=== PATIENT | male | born 1985 | race Caucasian/White ===

== ENCOUNTER 2017-01-22 12:51 | Emergency (ER) | payer OTHER ==
[~2017-01-22] VITALS: Ht 170.2 cm; Wt 125.0 kg
[~2017-01-22 12:51] MED LIST: LORTAB 5 OR; LORTAB 7.5 OR; MEDDOSEPAK PO; NO MEDICATIONS; ULTRAM50 M1 PO; VICOPROFEN OR; ZITHROMAX250 MG OR
[2017-01-22 13:39] LABS: HEMATOCRIT 44.7 % (39.0-50.0); HEMOGLOBIN 14.1 g/dl (14.0-18.0); IMMATURE GRANULOCYTES 0.5 % (0.0-1.0); MEAN CELL VOLUME 86.8 fL CALC (80.0-100.0); MEAN CORPUSCULAR HGB 27.4 pG CALC (26.0-32.0); MEAN CORPUSCULAR HGB CONC 31.5 g/L CALC (32.0-36.0); NEUT# 5.73 thou/uL (1.82-7.42); RED BLOOD COUNT 5.15 mill/uL (4.70-6.10); RED CELL DISTRI WIDTH 14.2 % (11.5-15.5)
[2017-01-22 13:49] LABS: INTERNATIONAL NORMALIZED RATIO 0.9 RATIO (0.7-1.3); PROTHROMBIN TIME 9.4 SECONDS (9.0-12.5)
[2017-01-22 13:50] LABS: ALBUMIN 4.6 g/dL (3.2-5.0); ALKALINE PHOSPHATASE 83 u/l (38-126); ANION GAP 16 (6-22 (CALC)); BILIRUBIN, TOTAL 0.3 mg/dL (0.0-1.4); BUN 20 mg/dL (9-20); BUN/CREATININE RATIO 22 (12-20 (CALC)); CALCIUM 9.8 mg/dL (8.4-10.2); CARBON DIOXIDE 28 mmol/l (22-30); CHLORIDE 101 mmol/l (95-108); CREATININE 0.9 mg/dL (0.7-1.3); GFR > 60 ML/MIN (>=60 (CALC)); GFR FOR AFR.AMER. > 60 ML/MIN (>=60 (CALC)); GLUCOSE 94 mg/dL (75-110); POTASSIUM 4.9 mmol/l (3.5-5.1); SGOT/AST 34 u/l (17-59); SGPT/ALT 66 u/l (21-72); SODIUM 141 mmol/l (137-146); TOTAL PROTEIN 7.7 g/dL (6.3-8.2)
[2017-01-22 13:59] LABS: MYOGLOBIN 58 ng/mL (0 - 121)
[2017-01-22] MEDS ORDERED: KLONOPIN1 MG PO (14:09)
[2017-01-22] MEDS ORDERED: VYVANSE70 MG PO ×2 (14:09→14:33)
[2017-01-22] MEDS ORDERED: ADDERALL20 MG PO ×2 (14:10→14:31)
[2017-01-22] MEDS ORDERED: LOSARTAN POT50 MG PO (14:10)
[2017-01-22] MEDS ORDERED: AMITRIPTYLIN25 MG PO (14:11)
[2017-01-22] MEDS ORDERED: PRILOSEC20 MG PO (14:11)
[2017-01-22] MEDS ORDERED: FLUOXETINE HCL40 MG PO (14:11)
[2017-01-22] MEDS ORDERED: TOPAMAX200 MG PO (14:12)
[2017-01-22] MEDS ORDERED: COZAAR50 MG PO (14:31)
[2017-01-22] MEDS ORDERED: FLUOXETINE10 M2 PO (14:32)
[2017-01-22] MEDS ORDERED: OMEPRAZOLE10 MG PO (14:33)
[2017-01-22] MEDS ORDERED: ELAVIL25 MG PO (14:34)
[2017-01-22 15:17] LABS: URINE BILIRUBIN - DIPSTICK NEGATIVE (NEGATIVE); URINE BLOOD DIPSTICK NEGATIVE (NEGATIVE); URINE CLARITY CLEAR; URINE COLOR YELLOW; URINE GLUCOSE - DIPSTICK NEGATIVE (NEGATIVE); URINE KETONE NEGATIVE (NEGATIVE); URINE LEUK ESTERASE NEGATIVE (Negative); URINE NITRITE - DIPSTICK NEGATIVE (Negative); URINE PROTEIN - DIPSTICK NEGATIVE (NEG-TRACE); URINE SPECIFIC GRAVITY 1.025; URINE UROBILINOGEN - DIPSTICK 0.2 E.U./dL (0.2)
[2017-01-22 15:20] LABS: BARBITURATES NEGATIVE (NEGATIVE); COCAINE NEGATIVE (NEGATIVE); METHADONE NEGATIVE (NEGATIVE); OXCYCODONE NEGATIVE (NEGATIVE); TETRAHYDROCANNABIONOL NEGATIVE (NEGATIVE); TRICYLIC ANTIDEPRESSANTS POSITIVE (NEGATIVE)
[2017-01-22 15:41] VITALS: BP 124/67
== END 2017-01-22 15:41 | disposition short-term general hospital (02) | DRG 948 ==
LOC: ED 12:51
PROVIDERS: Emergency Medicine
DX: R41.82 Altered mental status, unspecified (principal); F90.9 Attention-deficit hyperactivity disorder, unspecified type; R53.1 Weakness; R47.9 Unspecified speech disturbances; R06.02 Shortness of breath; G40.909 Epilepsy, unspecified, not intractable, without status epilepticus

== ENCOUNTER 2017-04-29 07:07 | Day surgery (SDC) | payer OTHER ==
[~2017-04-29] VITALS: Ht 177.8 cm; Wt 124.7 kg
[~2017-04-29 07:07] MED LIST changes: +ADDERALL20 MG PO; +AMITRIPTYLIN25 MG PO; +CELEBREX100 M1 PO; +COZAAR50 MG PO; +ELAVIL25 MG PO; +FLUOXETINE HCL40 MG PO; +FLUOXETINE10 M2 PO; +GABAPENTIN100 MG PO; +KLONOPIN1 MG PO; +LATUDA40 MG PO; +LOSARTAN POT50 MG PO; +OMEPRAZOLE10 MG PO; +PRILOSEC20 MG PO; +TOPAMAX200 MG PO; +VYVANSE70 MG PO
[2017-04-29 10:44] VITALS: BP 113/81
== END 2017-04-29 09:55 | disposition home or self-care (01) | DRG 392 ==
LOC: ENDO 07:07
PROVIDERS: ATTEND Surgery
PROC: 0DBK8ZX Excision of Ascending Colon, Via Natural or Artificial Opening Endoscopic, Diagnostic (ICD-10-PCS; principal; 2017-04-29)
PROC: 0DBL8ZX Excision of Transverse Colon, Via Natural or Artificial Opening Endoscopic, Diagnostic (ICD-10-PCS; 2017-04-29)
PROC: 0DBN8ZX Excision of Sigmoid Colon, Via Natural or Artificial Opening Endoscopic, Diagnostic (ICD-10-PCS; 2017-04-29)
DX: K52.9 Noninfective gastroenteritis and colitis, unspecified (principal); K90.9 Intestinal malabsorption, unspecified

== ENCOUNTER 2018-01-06 17:59 | Emergency (ER) | payer OTHER ==
[~2018-01-06] VITALS: Ht 177.8 cm; Wt 133.0 kg
[~2018-01-06 17:59] MED LIST changes: +INVEGA SUS234 MG/1.5; +LYRICA100 MG PO; +LYRICA150 M1 PO; +RISPERDAL1 M1 PO; +TEMAZEPAM30 MG PO
[2018-01-06 19:07] LABS: HEMOGLOBIN 13.3 g/dl (14.0-18.0); IMMATURE GRANULOCYTES 0.3 % (0.0-1.0); MEAN CELL VOLUME 84.7 fL CALC (80.0-100.0); MEAN CORPUSCULAR HGB 27.5 pG CALC (26.0-32.0); MEAN CORPUSCULAR HGB CONC 32.4 g/L CALC (32.0-36.0); NEUT# 8.31 thou/uL (1.82-7.42); RED BLOOD COUNT 4.84 mill/uL (4.70-6.10); RED CELL DISTRI WIDTH 13.7 % (11.5-15.5)
[2018-01-06 19:11] LABS: URINE BILIRUBIN - DIPSTICK NEGATIVE (NEGATIVE); URINE BLOOD DIPSTICK NEGATIVE (NEGATIVE); URINE COLOR YELLOW; URINE GLUCOSE - DIPSTICK NEGATIVE (NEGATIVE); URINE KETONE NEGATIVE (NEGATIVE); URINE LEUK ESTERASE NEGATIVE (NEGATIVE); URINE NITRITE - DIPSTICK NEGATIVE (Negative); URINE PH 6.5 (4.5-8.0); URINE PROTEIN - DIPSTICK NEGATIVE (NEG-TRACE); URINE UROBILINOGEN - DIPSTICK 0.2 E.U./dL (0.2)
[2018-01-06 19:14] LABS: URINE CLARITY CLEAR
[2018-01-06 19:20] LABS: ALBUMIN 4.7 g/dL (3.2-5.0); ALKALINE PHOSPHATASE 81 u/l (38-126); ANION GAP 16 (6-22 (CALC)); BILIRUBIN, TOTAL 0.4 mg/dL (0.0-1.4); BUN 13 mg/dL (9-20); BUN/CREATININE RATIO 17 (12-20 (CALC)); CARBON DIOXIDE 25 mmol/l (22-30); CHLORIDE 103 mmol/l (95-108); CREATININE 0.8 mg/dL (0.7-1.3); GFR > 60 ML/MIN (>=60 (CALC)); GFR FOR AFR.AMER. > 60 ML/MIN (>=60 (CALC)); LIPASE 117 u/l (23-300); POTASSIUM 4.3 mmol/l (3.5-5.1); SGOT/AST 32 u/l (17-59); SGPT/ALT 43 u/l (21-72); SODIUM 140 mmol/l (137-146); TOTAL PROTEIN 8.3 g/dL (6.3-8.2)
[2018-01-06] MEDS ORDERED: PREVACID30 M3 PO (20:15)
[2018-01-06] MEDS ORDERED: ZOFRAN ODT4 MG PO (20:15)
[2018-01-06 20:27] VITALS: BP 131/75
== END 2018-01-06 20:28 | disposition home or self-care (01) | DRG 392 ==
LOC: ED 17:59
PROVIDERS: Family Medicine
DX: K29.70 Gastritis, unspecified, without bleeding (principal); R10.11 Right upper quadrant pain; R10.12 Left upper quadrant pain; R11.0 Nausea; K76.0 Fatty (change of) liver, not elsewhere classified
CPT/HCPCS: Q9967

== ENCOUNTER 2019-05-01 14:30 | Emergency (ER) | payer OTHER ==
[~2019-05-01] VITALS: Ht 177.8 cm; Wt 105.0 kg
[~2019-05-01 14:30] MED LIST changes: -INVEGA SUS234 MG/1.5; +INVEGA SUS234 MG/1.5 IJ; +LYRICA200 MG PO; +PREVACID30 M3 PO; +TOPAMAX200 M1 PO; +ZOFRAN ODT4 MG PO
[2019-05-01] MEDS ORDERED: DIVALPROEX SOD500 M3 PO (15:20)
[2019-05-01] MEDS ORDERED: TOPIRAMATE ER150 MG PO (15:20)
[2019-05-01] MEDS ORDERED: LOSARTAN POTAS100 MG PO (15:22)
[2019-05-01] MEDS ORDERED: OMEPRAZOLE DR40 MG PO (15:22)
[2019-05-01] MEDS ORDERED: LYRICA200 MG PO (15:23)
[2019-05-01] MEDS ORDERED: TAMSULOSIN HCL0.4 MG PO (15:23)
[2019-05-01] MEDS ORDERED: CELECOXIB200 MG PO (15:26)
[2019-05-01] MEDS ORDERED: AUSTEDO6 MG PO (15:26)
[2019-05-01] MEDS ORDERED: ZOFRAN4 MG/TAB PO (15:27)
[2019-05-01] MEDS ORDERED: ADDERALL20 MG PO (15:28)
[2019-05-01 15:39] LABS: HEMATOCRIT 40.6 % (39.0-50.0); HEMOGLOBIN 13.2 g/dl (14.0-18.0); IMMATURE GRANULOCYTES 0.3 % (0.0-5.0); MEAN CELL VOLUME 86.8 fL CALC (80.0-100.0); MEAN CORPUSCULAR HGB 28.2 pG CALC (26.0-32.0); MEAN CORPUSCULAR HGB CONC 32.5 g/L CALC (32.0-36.0); NEUT# 6.63 thou/uL (1.82-7.42); RED BLOOD COUNT 4.68 mill/uL (4.70-6.10); RED CELL DISTRI WIDTH 13.4 % (11.5-15.5)
[2019-05-01 15:42] LABS: URINE BILIRUBIN - DIPSTICK NEGATIVE (NEGATIVE); URINE BLOOD DIPSTICK NEGATIVE (NEGATIVE); URINE COLOR YELLOW; URINE GLUCOSE - DIPSTICK NEGATIVE (NEGATIVE); URINE KETONE NEGATIVE (NEGATIVE); URINE LEUK ESTERASE NEGATIVE (Negative); URINE NITRITE - DIPSTICK NEGATIVE (Negative); URINE PROTEIN - DIPSTICK NEGATIVE (NEG-TRACE); URINE SPECIFIC GRAVITY 1.015
[2019-05-01 15:53] LABS: URINE CLARITY CLEAR
[2019-05-01 16:03] LABS: ALBUMIN 4.3 g/dL (3.2-5.0); ALKALINE PHOSPHATASE 81 u/l (38-126); AMYLASE 63 u/l (30-110); BILIRUBIN, TOTAL 0.4 mg/dL (0.0-1.4); BUN 10 mg/dL (9-20); BUN/CREATININE RATIO 13 (12-20 (CALC)); CARBON DIOXIDE 24 mmol/l (22-30); CHLORIDE 107 mmol/l (95-108); CREATININE 0.8 mg/dL (0.7-1.3); ETHYL ALCOHOL 0 mg/dl (0-30); GFR > 60 ML/MIN (>=60 (CALC)); GFR FOR AFR.AMER. > 60 ML/MIN (>=60 (CALC)); LIPASE 154 u/l (23-300); SGOT/AST 14 u/l (17-59); SODIUM 141 mmol/l (137-146); TOTAL PROTEIN 7.4 g/dL (6.3-8.2)
[2019-05-01 16:05] LABS: ANION GAP 14 (6-22 (CALC)); POTASSIUM 4.2 mmol/l (3.5-5.1)
[2019-05-01 16:15] VITALS: BP 112/66
[2019-05-01 16:33] LABS: BARBITURATES NEGATIVE (NEGATIVE); COCAINE NEGATIVE (NEGATIVE); METHADONE NEGATIVE (NEGATIVE); OXCYCODONE NEGATIVE (NEGATIVE); TETRAHYDROCANNABIONOL NEGATIVE (NEGATIVE); TRICYLIC ANTIDEPRESSANTS NEGATIVE (NEGATIVE)
== END 2019-05-01 16:15 | disposition left against medical advice (07) ==
LOC: ED 14:30
DX: R10.11 Right upper quadrant pain (principal); R11.2 Nausea with vomiting, unspecified; I10 Essential (primary) hypertension; Z91.19 Patient's noncompliance with other medical treatment and regimen

== ENCOUNTER 2019-05-11 09:50 | Observation (INO) | payer OTHER ==
[~2019-05-11] VITALS: Ht 180.3 cm; Wt 119.0 kg
[~2019-05-11 09:50] MED LIST changes: +AUSTEDO6 MG PO; +CELECOXIB200 MG PO; +DIVALPROEX SOD500 M3 PO; +LOSARTAN POTAS100 MG PO; +OMEPRAZOLE DR40 MG PO; +TAMSULOSIN HCL0.4 MG PO; +TOPIRAMATE ER150 MG PO; +ZOFRAN4 MG/TAB PO
--- NOTE | 2019-05-11 09:50 | NUR ---
PATIENT TO ROOM VIA EMS, GIVEN 4 MG OF ZOFRAN AND 400 ML OF NORMAL SALINE BY EMS. PATIENT NOTED TO HAVE DRIED VOMITING TO FACE.
--- NOTE | 2019-05-11 10:00 | NUR ---
PATIENT CLEANED OF ANY EMESIS.
--- NOTE | 2019-05-11 10:05 | NUR ---
O2 TURNED OFF FOR ABG.
[2019-05-11 10:47] LABS: HEMATOCRIT 38.9 % (39.0-50.0); HEMOGLOBIN 12.4 g/dl (14.0-18.0); IMMATURE GRANULOCYTES 0.4 % (0.0-5.0); MEAN CELL VOLUME 89.2 fL CALC (80.0-100.0); MEAN CORPUSCULAR HGB 28.4 pG CALC (26.0-32.0); MEAN CORPUSCULAR HGB CONC 31.9 g/L CALC (32.0-36.0); NEUT# 14.74 thou/uL (1.82-7.42); RED BLOOD COUNT 4.36 mill/uL (4.70-6.10); RED CELL DISTRI WIDTH 13.5 % (11.5-15.5)
--- NOTE | 2019-05-11 11:00 | NUR ---
PATIENT MEDICATED PER MD ORDER. AT BEDSIDE, UPDATED ON PATIENT STATUS.
[2019-05-11 11:01] LABS: URINE BILIRUBIN - DIPSTICK NEGATIVE (NEGATIVE); URINE BLOOD DIPSTICK NEGATIVE (NEGATIVE); URINE COLOR YELLOW; URINE GLUCOSE - DIPSTICK NEGATIVE (NEGATIVE); URINE KETONE NEGATIVE (NEGATIVE); URINE LEUK ESTERASE NEGATIVE (NEGATIVE); URINE NITRITE - DIPSTICK NEGATIVE (Negative); URINE PROTEIN - DIPSTICK NEGATIVE (NEG-TRACE); URINE SPECIFIC GRAVITY >=1.030; URINE UROBILINOGEN - DIPSTICK 0.2 E.U./dL (0.2)
[2019-05-11 11:02] LABS: ALBUMIN 4.2 g/dL (3.2-5.0); ALKALINE PHOSPHATASE 81 u/l (38-126); ANION GAP 15 (6-22 (CALC)); BILIRUBIN, TOTAL 0.4 mg/dL (0.0-1.4); BUN 14 mg/dL (9-20); BUN/CREATININE RATIO 20 (12-20 (CALC)); CARBON DIOXIDE 23 mmol/l (22-30); CHLORIDE 110 mmol/l (95-108); CREATININE 0.7 mg/dL (0.7-1.3); ETHYL ALCOHOL 0 mg/dl (0-30); GFR > 60 ML/MIN (>=60 (CALC)); GFR FOR AFR.AMER. > 60 ML/MIN (>=60 (CALC)); LIPASE 51 u/l (23-300); POTASSIUM 4.2 mmol/l (3.5-5.1); SODIUM 143 mmol/l (137-146); TOTAL PROTEIN 7.1 g/dL (6.3-8.2)
[2019-05-11 11:03] LABS: BARBITURATES NEGATIVE (NEGATIVE); COCAINE NEGATIVE (NEGATIVE); METHADONE NEGATIVE (NEGATIVE); OXCYCODONE NEGATIVE (NEGATIVE); TETRAHYDROCANNABIONOL NEGATIVE (NEGATIVE); TRICYLIC ANTIDEPRESSANTS NEGATIVE (NEGATIVE)
[2019-05-11 11:11] LABS: SGOT/AST 25 u/l (17-59)
[2019-05-11] MEDS ORDERED: RISPERDAL2 MG PO (11:15)
--- NOTE | 2019-05-11 11:20 | NUR ---
MED REC COMPLETED WITH PATIENT AND . REPORTS RECENT MED CHANGES WITHIN PAST COUPLE OF WEEKS.
[2019-05-11 11:33] LABS: TSH, 3RD GENERATION 0.18 uIU/mL (0.47 - 4.68)
--- NOTE | 2019-05-11 11:40 | NUR ---
WET COUGH NOTED, NO SPUTUM PRODUCED. ICE CHIPS GIVEN PER PATIENT REQUEST. WAITING FOR CT SCAN.
--- NOTE | 2019-05-11 12:20 | NUR ---
PATIENT RETURNS FROM CT, LAB AT BEDSIDE TO DRAW SECOND LACTIC.
--- NOTE | 2019-05-11 13:00 | NUR ---
O2 SAT 80%, LIGHT SNORES NOTED. PATIENT RESPONDS TO PAIN, DROWSY. PATIENT PLACED ON FACEMASK AT 8L/MIN OF O2. O2 SAT 94% AFTER. PATIENT ALERT AND ORIENTED X3. UPDATED ON PATIENT STATUS.
--- NOTE | 2019-05-11 14:00 | NUR ---
AT BEDSIDE TO DISCUSS LUMBAR PUNCTURE WITH PATIENT. PATIENT NOTED TO BE ALERT AND ORIENTED. ABLE TO HOLD CONVERSATION. MASK REMOVED AND O2 AT 2L/MIN APPLIED. PATIENT TOLERATING WELL.
--- NOTE | 2019-05-11 14:35 | NUR ---
AT BEDSIDE FOR LUMBAR PUNCTURE. PATIENT TOLERATED WELL. WILL CONTINUE TO MONITOR. PATIENT RESTING SUPINE. INFOMRED OF POST LUMBAR CARE. VERBAL UNDERSTANDING.
--- NOTE | 2019-05-11 14:55 | NUR ---
REPORT GIVEN TO REGAN CARDONA.
--- NOTE | 2019-05-11 15:30 | NUR ---
PATIENT REPORTS SORE THROAT, THROAT NOTED TO BE RED AND IRRITATED. STREP SWAB COLLECTED.
--- NOTE | 2019-05-11 15:35 | NUR ---
PATIENT RESTING ON STRECHER WATCHING TV. NO SIGNS OF DISTRESS NOTED. WILL CONTINUE TO MONITOR.
--- NOTE | 2019-05-11 16:25 | NUR ---
PATIENT RESTING ON STRETCHER, NO CHANGE IN PREVIOUS ASSESSMENT. WILL CONTINUE TO MONITOR.
--- NOTE | 2019-05-11 17:00 | NUR ---
ATTEMPT MADE TO CALL REPORT, SPOKE TO WYATT. RN. REQUESTING ORDERS FROM ADMIT/UNIT ORDERS BEFORE TAKING REPORT.
--- NOTE | 2019-05-11 17:41 | NUR ---
REPORT CALLED TO REGAN SCHNEIDER.
--- NOTE | 2019-05-11 17:45 | NUR ---
PATIENT TRANSPORTED TO ICU WITH PERIANESTHESIA RN IN PLACE. IV MEDS INFUSING. REGAN COMBS AND REGAN SHOEMAKER AT BEDSIDE. CARE RELINQUISHED TO PRIMARY NURSE REGAN SCHNEIDER. PHONE, GLASSES AND CLOTHING SENT UP WITH PATIENT.
[2019-05-11 17:50] VITALS: BP 131/69
--- NOTE | 2019-05-11 17:50 | NUR ---
pt arrived to icu bed 5 via stretcher accompanied by er staff. pt able to stand and transfer self to bed. pt reports waking up this am and vimitting and then not being able to get up off of the floor. pt is alert and oriented x3. admission assessment completed at this time. pt does have slow speech and left eye that droops pt reports that is his norm that he had a tbi in 2008. iv patent x2. oriented pt to room and unit. call light in reach. will continue to monitor.
[2019-05-11 18:15] VITALS: BP 112/62
[2019-05-11 18:30] VITALS: BP 112/72
[2019-05-11 18:45] VITALS: BP 124/71
--- NOTE | 2019-05-11 18:50 | NUR ---
REPORT FROM Marcie LIPSCOMB RN. ASSUMED PT. CARE.
--- NOTE | 2019-05-11 19:15 | NUR ---
PT. FOUND SITTING UP IN BED EATING SUPPER. PT. REQUESTING MORE FOOD AT THIS TIME. ALERT, ORIENTED X 3. LEVAQUIN AND ACYCLOVIR INFUSING AT THIS TIME DIRECTED. NO REACTIONS NOTED. RESPS EVEN AND UNLABORED. SKIN WARM AND DRY. LUNGS CTA. NO SWELLING OR DISCOMFORT NOTED TO LOWER BACK AT SITE OF LUMBAR PUNCTURE. PT. C/O OF SOME MILD THROAT AND RT. MID ABD PAIN. DENIES NAUSEA, VOMITING OR DIARRHEA. BOWEL SOUNDS ACTIVE. AFEBRILE. MAE. STEWART. PT. PROVIDED WITH SHIRLEY CRACKERS, PUDDING AND ADDITIONAL SANDWICH AT THIS TIME. NO DISTRESS. BP/HR STABLE. CALL LIGHT WITHIN REACH. NO EDEMA NOTED. WILL CONTINUE TO MONITOR.
--- NOTE | 2019-05-11 19:50 | NUR ---
LEVAUQIN INFUSED AT THIS TIME. NO REACTIONS NOTED. LINE LOCKED AND SALINE FLUSHED. SKIN REMAINS WARM AND DRY AT THIS TIME. NO DISTRESS. CALL LIGHT REMAINS WITHIN REACH.
[2019-05-11 20:00] VITALS: BP 107/53
--- NOTE | 2019-05-11 20:05 | NUR ---
IV FLUIDS INITIATED AT THIS TIME ORDERED. ACYCLOVIR INFUSED WITHOUT NOTED REACTIONS. REMAINS AFEBRILE AT THIS TIME. CALL LIGHT REMAINS WITHIN REACH. WILL CONTINUE TO MONITOR.
[2019-05-11 22:00] VITALS: BP 90/45
--- NOTE | 2019-05-11 22:13 | NUR ---
PT. SLEEPING WITH SNORING RESPIRATIONS AT THIS TIME. MEDICATED PER PHYSICIAN ORDERS. CALL LIGHT REMAINS WITHIN REACH. RESPS REMAIN EVEN AND UNLABORED. IV FLUIDS CONTINUE TO INFUSE.
--- NOTE | 2019-05-11 22:56 | NUR ---
PT. ASSISTED WITH CHANGE OF GOWN AND LINENS AT THIS TIME. PT. WITH URGE INCONTINENCE AT THIS TIME. REMAINS ORIENTED X 3 IN NO DISTRESS. IV FLUIDS CONTINUE TO INFUSE AT 100 CC/HR ORDERED. CALL LIGHT REMAINS WITHIN REACH. REMAINS AFEBRILE. WILL CONTINUE TO MONITOR.
[2019-05-12] VITALS (7 sets, daily range): BP systolic 87–136; BP diastolic 35–67
--- NOTE | 2019-05-12 00:30 | NUR ---
BP LOW AT THIS TIME. IV FLUIDS CONTINUE TO INFUSE ORDERED. WILL CLOSELY MONITOR. CALL LIGHT REMAINS WITHIN REACH.
--- NOTE | 2019-05-12 02:20 | NUR ---
PT. REMAINS WITH SNORING RESPIRATION AND IN NO DISTRESS. IV FLUIDS CONTINUE TO INFUSE. BP IMPROVED. CALL LIGHT REMAINS WITHIN REACH. WILL CONTINUE TO ASSESS.
--- NOTE | 2019-05-12 04:43 | NUR ---
LAB AT BEDSIDE AT THIS TIME. PT. REMAINS STABLE. REMAINS AFEBRILE. CALL LIGHT WITHIN REACH. REMAINS EASILY AROUSABLE TO LIGHT VERBAL STIMULI. VOICES NO COMPLAINTS OR NEEDS.
[2019-05-12 05:03] LABS: HEMATOCRIT 36.8 % (39.0-50.0); HEMOGLOBIN 11.7 g/dl (14.0-18.0); IMMATURE GRANULOCYTES 0.4 % (0.0-5.0); MEAN CELL VOLUME 89.8 fL CALC (80.0-100.0); MEAN CORPUSCULAR HGB 28.5 pG CALC (26.0-32.0); MEAN CORPUSCULAR HGB CONC 31.8 g/L CALC (32.0-36.0); NEUT# 9.44 thou/uL (1.82-7.42); RED BLOOD COUNT 4.1 mill/uL (4.70-6.10); RED CELL DISTRI WIDTH 13.2 % (11.5-15.5)
[2019-05-12 05:22] LABS: ANION GAP 11 (6-22 (CALC)); BUN 9 mg/dL (9-20); BUN/CREATININE RATIO 17 (12-20 (CALC)); CARBON DIOXIDE 25 mmol/l (22-30); CHLORIDE 106 mmol/l (95-108); CREATININE 0.5 mg/dL (0.7-1.3); GFR > 60 ML/MIN (>=60 (CALC)); GFR FOR AFR.AMER. > 60 ML/MIN (>=60 (CALC)); POTASSIUM 4.4 mmol/l (3.5-5.1); SODIUM 139 mmol/l (137-146)
--- NOTE | 2019-05-12 06:02 | NUR ---
PT. CONTINUES TO REST IN BED IN NO DISTRESS. EYES CLOSED WITH EVEN AND UNLABORED RESPIRATIONS. CALL LIGHT REMAINS WITHIN REACH. SITTER REMAINS AT BEDSIDE AT THIS TIME. WILL CONTINUE TO ASSESS.
--- NOTE | 2019-05-12 06:04 | NUR ---
PT. REMAINS RESTING IN BED IN NO DISTRESS. SKIN REMAINS WARM AND DRY. NO DISTRESS. URINAL EMPTIED OF 700 CC AT THIS TIME. CALL LIGHT REMAINS WITHIN REACH. IV FLUIDS CONTINUES TO INFUSE WITHOUT SX OF INFILTRATION OR EXTRAVASATION.
--- NOTE | 2019-05-12 07:00 | NUR ---
PT RESTING IN BED ASLEEP. AROUSES TO VERBAL STIMULI. PT IS ALERT AND ORIENTED X3. SHIFT ASSESSMENT COMPLETED AT THIS TIME. IV PATENT X1. CALL LIGHT IN REACH. WILL CONTINUE TO MONITOR.
--- NOTE | 2019-05-12 09:30 | NUR ---
DR PARKER AT BEDSIDE AT THIS TIME
--- NOTE | 2019-05-12 10:00 | NUR ---
PT AMBULATED TO BATHROOM FOR BM.
--- NOTE | 2019-05-12 10:20 | NUR ---
PT AMBULATED FROM BATHROOM BACK TO BED.
--- NOTE | 2019-05-12 11:40 | NUR ---
PT SET UP FOR NOON MEAL
[2019-05-12] MEDS ORDERED: OMNICEF300 MG PO (12:35)
--- NOTE | 2019-05-12 12:40 | NUR ---
IV site discontinued, cath intact. No edema , no redness, voices no discomfort.
--- NOTE | 2019-05-12 12:50 | NUR ---
PT GIVEN DISCHARGE INSTRUCTIONS VERBALIZED UNDERSTANDING.
--- NOTE | 2019-05-12 12:55 | NUR ---
Discharge instructions given. Patient verbalizes understanding of same. Discharged in stable condition via Wheelchair to Home with family. All belongings sent with pt.
== END 2019-05-12 12:55 | disposition home or self-care (01) ==
LOC: ED 09:50 → ED-I 15:10 → ED 16:29 → ICU 16:30
PROVIDERS: Family Medicine; Nurse Practitioner Family; ADMIT Internal Medicine; ATTEND Internal Medicine
DX: J02.0 Streptococcal pharyngitis (principal); I10 Essential (primary) hypertension; F20.9 Schizophrenia, unspecified; Z88.0 Allergy status to penicillin; Z87.820 Personal history of traumatic brain injury
CPT/HCPCS: Q9967; S0073

== ENCOUNTER 2019-06-10 09:54 | Inpatient (IN) | payer OTHER ==
[~2019-06-10] VITALS: Ht 180.3 cm; Wt 117.1 kg
[~2019-06-10 09:54] MED LIST changes: +OMNICEF300 MG PO; +RISPERDAL2 MG PO
--- NOTE | 2019-06-10 09:55 | NUR ---
PT TO ROOM 14 VIA EMS
--- NOTE | 2019-06-10 10:12 | NUR ---
PT STATES THAT HIS RIGHT FOOT FELL IN A HOLE AND OPAL HIS BACK. PT HAS PAIN IN THE LOWER BACK, STATES HAVING DIFFICULTY STANDIGN DUE TO PAIN. PT RATES PAIN A 10/10. DENIES ANY LOC, C/P, SOB OR WEAKNESS.
[2019-06-10] MEDS ORDERED: CLONAZEPAM1 MG PO (10:46)
[2019-06-10 10:57] LABS: HEMOGLOBIN 13.6 g/dl (14.0-18.0); IMMATURE GRANULOCYTES 0.4 % (0.0-5.0); MEAN CELL VOLUME 86.9 fL CALC (80.0-100.0); MEAN CORPUSCULAR HGB 28.8 pG CALC (26.0-32.0); MEAN CORPUSCULAR HGB CONC 33.2 g/L CALC (32.0-36.0); NEUT# 13.25 thou/uL (1.82-7.42); RED BLOOD COUNT 4.72 mill/uL (4.70-6.10); RED CELL DISTRI WIDTH 13.7 % (11.5-15.5)
--- NOTE | 2019-06-10 11:12 | NUR ---
PT RESTING ON STRETCHER,
[2019-06-10 11:15] LABS: ACT PARTIAL THROMBO TIME 24.2 SECONDS (20.0-32.5); INTERNATIONAL NORMALIZED RATIO 0.9 RATIO (0.7-1.3); PROTHROMBIN TIME 9.6 SECONDS (9.0-12.5)
[2019-06-10 11:18] LABS: ALBUMIN 4.2 g/dL (3.2-5.0); ALKALINE PHOSPHATASE 88 u/l (38-126); AMYLASE 49 u/l (30-110); BILIRUBIN, TOTAL 0.4 mg/dL (0.0-1.4); BUN 36 mg/dL (9-20); CHLORIDE 111 mmol/l (95-108); ETHYL ALCOHOL 0 mg/dl (0-30); LIPASE 107 u/l (23-300); POTASSIUM 4.3 mmol/l (3.5-5.1); SODIUM 142 mmol/l (137-146); TOTAL PROTEIN 7.1 g/dL (6.3-8.2)
[2019-06-10 11:25] LABS: ANION GAP 17 (6-22 (CALC)); BUN/CREATININE RATIO 24 (12-20 (CALC)); GFR 54 ML/MIN (>=60 (CALC))
[2019-06-10 11:26] LABS: CARBON DIOXIDE 18 mmol/l (22-30); CREATININE 1.5 mg/dL (0.7-1.3); GFR FOR AFR.AMER. > 60 ML/MIN (>=60 (CALC)); MAGNESIUM 2.6 mg/dL (1.6-2.3); SGOT/AST 1064 u/l (17-59)
--- NOTE | 2019-06-10 11:30 | NUR ---
AT BEDSIDE,. PRESENTED EMPTY BOTTLE OF 200MG PREGABLAIN THAT WAS FILLED ON 06/06. PT STATES THAT HE DUMBED THE BOTTLE DOWN THE TOILET. STATES THAT HE HAS CLAIMED THIS BEFORE WHEN HE OVERDOSED ON THEM.
[2019-06-10 11:48] LABS: CPK 59590 u/l (52-200)
--- NOTE | 2019-06-10 11:53 | NUR ---
[facility] CONTACTED- SPOKE WITH GREGOR, SHE WILL CHECK WITH TOXICOLOGY TO DETERMINE FURTHER TREATMENT.
--- NOTE | 2019-06-10 12:35 | NUR ---
URINE COLLECTED FROM PT, DARK TEA IN COLOR
[2019-06-10 12:55] LABS: URINE BLOOD DIPSTICK LARGE (NEGATIVE); URINE GLUCOSE - DIPSTICK NEGATIVE (NEGATIVE); URINE KETONE 15 mg/dL (NEGATIVE); URINE LEUK ESTERASE NEGATIVE (NEGATIVE); URINE PH 5.5 (4.5-8.0); URINE PROTEIN - DIPSTICK 100 mg/dL (NEG-TRACE); URINE SPECIFIC GRAVITY 1.025; URINE UROBILINOGEN - DIPSTICK 0.2 E.U./dL (0.2)
[2019-06-10 13:01] LABS: URINE BILIRUBIN - DIPSTICK NEGATIVE (NEGATIVE)
[2019-06-10 13:02] LABS: URINE COLOR BROWN
[2019-06-10 13:03] LABS: URINE EPITHELIAL CELLS FEW EPI/hpf (0-FEW); URINE NITRITE - DIPSTICK NEGATIVE (Negative); URINE WBC 0-2 WBC/hpf (0-5)
[2019-06-10 13:04] LABS: URINE BACTERIA RARE hpf; URINE RED BLOOD CELL CAST FEW lpf
[2019-06-10 13:22] LABS: BARBITURATES NEGATIVE (NEGATIVE); COCAINE NEGATIVE (NEGATIVE); METHADONE NEGATIVE (NEGATIVE); TETRAHYDROCANNABIONOL NEGATIVE (NEGATIVE); TRICYLIC ANTIDEPRESSANTS NEGATIVE (NEGATIVE)
[2019-06-10 13:23] LABS: OXCYCODONE NEGATIVE (NEGATIVE)
--- NOTE | 2019-06-10 13:35 | NUR ---
PT RESTING ON STRETCHER, IV PATENT WITH FLUIDS RUNNING
--- NOTE | 2019-06-10 14:00 | NUR ---
[facility] CALLED BACK TO FOLLOW UP ON PT CARE- NO ADDITIONAL INSTRUCTIONS GIVEN
--- NOTE | 2019-06-10 15:58 | NUR ---
FEDERICO SPEARS FROM [facility] CALLED FOR REPORT- ACCEPTED PT
--- NOTE | 2019-06-10 16:30 | NUR ---
Admission Note Report Given to: FEDERICO RN Transported by: Wheelchair X Stretcher Transported with: X Nurse Transporter X Patent IV O2 X Loan Collector TRANSPORTED TO [facility] WITHOUT INCIDENT. {NO DRY GOODS CLERK}
[2019-06-10 16:41] VITALS: BP 118/56
--- NOTE | 2019-06-10 17:00 | NUR ---
PT ARRIVES TO ROOM 272, DROWSY BUT APPROPRIATE IN HIS ANSWERS. LUNGS CLEAR, RA. NO REPORT OF PAIN. IVF RUNNING 150 ML/HR. LABS REVIEWED WITH PT. NO ACUTE DISTRESS, ALTHOUGH PT SEEMS TO BE SLOW TO RESPOND.
[2019-06-10 19:40] VITALS: BP 96/55
[2019-06-11 03:59] VITALS: BP 102/67
[2019-06-11 05:56] LABS: HEMATOCRIT 38.5 % (39.0-50.0); HEMOGLOBIN 12.3 g/dl (14.0-18.0); IMMATURE GRANULOCYTES 0.5 % (0.0-5.0); MEAN CELL VOLUME 89.7 fL CALC (80.0-100.0); MEAN CORPUSCULAR HGB 28.7 pG CALC (26.0-32.0); MEAN CORPUSCULAR HGB CONC 31.9 g/L CALC (32.0-36.0); NEUT# 10.1 thou/uL (1.82-7.42); RED BLOOD COUNT 4.29 mill/uL (4.70-6.10); RED CELL DISTRI WIDTH 14.2 % (11.5-15.5)
[2019-06-11 06:25] LABS: ANION GAP 12 (6-22 (CALC)); BUN 15 mg/dL (9-20); BUN/CREATININE RATIO 15 (12-20 (CALC)); CARBON DIOXIDE 21 mmol/l (22-30); CHLORIDE 112 mmol/l (95-108); GFR > 60 ML/MIN (>=60 (CALC)); GFR FOR AFR.AMER. > 60 ML/MIN (>=60 (CALC)); POTASSIUM 3.9 mmol/l (3.5-5.1); SODIUM 141 mmol/l (137-146)
[2019-06-11 06:56] LABS: CPK > 32000 u/l (52-200)
[2019-06-11 08:52] VITALS: BP 112/63
--- NOTE | 2019-06-11 08:52 | NUR ---
PT IS SITTING IN RECLINER [facility] IN HIS CELL PHONE. ASSESSMENT DONE. PT IS A&O X3 AT THIS TIME. PT STATED PAIN IN BACK 04/23. PT REFUSED HIS CLONAZPAM AT THIS TIME. PT STATED HE TAKES IT PM. RESPS EVEN AND UNLABORED. IVF INFUSING WELL. PT STATED HE HAD A BM. PT DENIES ANY OTHER NEEDS AT THIS TIME. CALL LIGHT IN REACH. NOTIFIED LOUIS HERRMANN RE: PT CONCERNS.
--- NOTE | 2019-06-11 10:42 | NUR ---
PT IS SITTING IN RECLINER. MEDICATED PT WITH LORTAB FOR PAIN. EDUCATED PT ON THE USE OF I.S. PT VERBALIZED UNDERSTANDING. PT DENIES ANY OTHER NEEDS AT THIS TIME. CALL LIGHT IN REACH.
--- NOTE | 2019-06-11 14:08 | NUR ---
MANDA FROM [facility] CALLED FOR AN UPDATE. Re: PT.
--- NOTE | 2019-06-11 15:19 | NUR ---
PT IS RESTING IN BED. PT STATED HE IS OKAY AT THIS TIME. CALL LIGHT IN REACH.
[2019-06-11 16:00] VITALS: BP 106/66
[2019-06-11 18:51] VITALS: BP 120/65
--- NOTE | 2019-06-11 19:00 | NUR ---
RECEIVED REPORT FROM NURSE MARCK PATIENT RESTING IN BED, C/O LOW BACK PAIN PS 12/22 EVEN UNLABORED RESPIRATION CALL LIGHT AT REACH.
--- NOTE | 2019-06-11 19:34 | NUR ---
PATIENT PS 9/1O LOW BACK PAIN PRN OXYCODONE GIVEN AT THIS TIME, WILL REEVALUATE, PATIENT HAS ONGOING NS @ 150CC/HR, INFUSING WELL ON RAC G18, ACTIVE BOWEL SOUNDS ON ALL QUADRANTS, LBM 06/11, ALERT ORIENTED, WILL CONTINUE TOP MONITOR.
--- NOTE | 2019-06-11 23:10 | NUR ---
RECEIVED A PHONECALL FROM [facility] WITH RECOMMENDATION TO REPEAT LIVER ENZYMES, DR FUENTES, ORDER PUT INTO PLACE
[2019-06-11 23:45] LABS: ALKALINE PHOSPHATASE 51 u/l (38-126); ANION GAP 10 (6-22 (CALC)); BILIRUBIN, TOTAL 0.4 mg/dL (0.0-1.4); BUN 11 mg/dL (9-20); BUN/CREATININE RATIO 12 (12-20 (CALC)); CARBON DIOXIDE 23 mmol/l (22-30); CHLORIDE 112 mmol/l (95-108); CREATININE 0.9 mg/dL (0.7-1.3); GFR > 60 ML/MIN (>=60 (CALC)); GFR FOR AFR.AMER. > 60 ML/MIN (>=60 (CALC)); POTASSIUM 3.6 mmol/l (3.5-5.1); SGOT/AST 424 u/l (17-59); SODIUM 140 mmol/l (137-146)
[2019-06-11 23:50] LABS: ALBUMIN 2.7 g/dL (3.2-5.0); TOTAL PROTEIN 5.2 g/dL (6.3-8.2)
[2019-06-12 04:56] VITALS: BP 104/62
[2019-06-12 05:46] LABS: HEMATOCRIT 32.7 % (39.0-50.0); HEMOGLOBIN 10.5 g/dl (14.0-18.0); IMMATURE GRANULOCYTES 0.2 % (0.0-5.0); MEAN CELL VOLUME 88.9 fL CALC (80.0-100.0); MEAN CORPUSCULAR HGB 28.5 pG CALC (26.0-32.0); MEAN CORPUSCULAR HGB CONC 32.1 g/L CALC (32.0-36.0); NEUT# 5.66 thou/uL (1.82-7.42); RED BLOOD COUNT 3.68 mill/uL (4.70-6.10); RED CELL DISTRI WIDTH 13.8 % (11.5-15.5)
--- NOTE | 2019-06-12 05:50 | NUR ---
RECEIVED A PHONE CALL FROM [facility], UPDATED WITH LABS
[2019-06-12 05:55] LABS: ANION GAP 8 (6-22 (CALC)); BUN 9 mg/dL (9-20); BUN/CREATININE RATIO 12 (12-20 (CALC)); CARBON DIOXIDE 23 mmol/l (22-30); CHLORIDE 112 mmol/l (95-108); CREATININE 0.8 mg/dL (0.7-1.3); GFR > 60 ML/MIN (>=60 (CALC)); GFR FOR AFR.AMER. > 60 ML/MIN (>=60 (CALC)); POTASSIUM 3.4 mmol/l (3.5-5.1); SODIUM 140 mmol/l (137-146)
[2019-06-12 06:14] LABS: CPK 23153 u/l (52-200)
[2019-06-12 08:50] VITALS: BP 113/67
--- NOTE | 2019-06-12 08:50 | NUR ---
ASSESSMENT IS COMPLETED: IV SITE IS FREE FROM REDNESS OR EDEMA.HR IS REG,PULSES ARE STRONG X4,ABD IS SOFT WITH ACTIVE BS, BREATH SOUNDS ARE CLEAR BILATERALLY. CONTINUE TO OSBERVE AND MONITOR
--- NOTE | 2019-06-12 11:13 | NUR ---
PHYSICAL THERAPY IN TO VISIT WITH PT.
--- NOTE | 2019-06-12 12:35 | NUR ---
PT IS RELAXING IN BED HAS BEEN ENCOURAGED TO GET OUT OF BED, IV SITE IS FREE FROM REDNESS OR EDEMA
--- NOTE | 2019-06-12 13:24 | NUR ---
REHANA , THEN FEDERICO AT [facility]. RE: PT LABS
--- NOTE | 2019-06-12 13:27 | NUR ---
FEDERICO FROM [facility] RECOMMENDS THAT PT STAY 1 MORE NIGHT TO CHECK ON LABS : BUN/CREAT/AST/ALT/CREATININE KINASE
--- NOTE | 2019-06-12 15:05 | NUR ---
DR LEUNG IN TO VISIT WITH PT.
[2019-06-12 15:47] VITALS: BP 126/67
--- NOTE | 2019-06-12 16:35 | NUR ---
[PT REMAINS BACK IN TO BED WITH NO DISTRESS NOTED. IV SITE IS FREE FROM REDNESS OR EDEMA.
[2019-06-12 19:00] VITALS: BP 123/70
--- NOTE | 2019-06-12 20:23 | NUR ---
PT ASSESSMENT COMPLETED AND MEDICATIONS ADMINISTERED ORDERS PROVIDE.COKE PROVIDED/PER REQUEST, PT MEDICATED FOR PAIN REPORTED 9/10 ON PAIN SCALE. PT DENIES ANY OTHER NEEDS AT THIS TIME. [facility] AND PT ENCOURAGED TO CALL NEEDS ARISE.
--- NOTE | 2019-06-12 23:08 | NUR ---
IV PUMP SOUNDED. PT IS SLEEPING, NO S/O DISTRESS NOTED.
--- NOTE | 2019-06-12 23:34 | NUR ---
IVF REPLENISHED AT THIS TIME. PT SLEEPING SOUNDLY, DID NOT AWAKE TO MY ENTERING ROOM. SONOUROUS SOUNDS WERE AUDIBLE. CALL LIGHT W/IN REACH.
[2019-06-13 03:35] VITALS: BP 119/75
[2019-06-13 05:28] LABS: ALBUMIN 2.8 g/dL (3.2-5.0); ALKALINE PHOSPHATASE 48 u/l (38-126); ANION GAP 9 (6-22 (CALC)); BILIRUBIN, TOTAL 0.5 mg/dL (0.0-1.4); BUN 9 mg/dL (9-20); BUN/CREATININE RATIO 12 (12-20 (CALC)); CARBON DIOXIDE 25 mmol/l (22-30); CHLORIDE 111 mmol/l (95-108); CREATININE 0.7 mg/dL (0.7-1.3); GFR > 60 ML/MIN (>=60 (CALC)); GFR FOR AFR.AMER. > 60 ML/MIN (>=60 (CALC)); POTASSIUM 3.7 mmol/l (3.5-5.1); SGOT/AST 232 u/l (17-59); SODIUM 140 mmol/l (137-146); TOTAL PROTEIN 5.4 g/dL (6.3-8.2)
[2019-06-13 05:35] LABS: MAGNESIUM 1.7 mg/dL (1.6-2.3)
[2019-06-13 08:00] VITALS: BP 114/71
--- NOTE | 2019-06-13 08:00 | NUR ---
PT IS AWAKE, ALERT, ORIENTED X 3. LUNGS CLEAR, AMBULATORY IN ROOM. PT WITH LOW BACK PAIN, MEDICATED FOR SAME. IVF CONTINUES, PT UPDATED ON PLAN OF CARE.
--- NOTE | 2019-06-13 12:00 | NUR ---
PT PROVIDED PAIN MED FOR CHRONIC LOW BACK DISCOMFORT. PT RESTS IN THE BED IN NO ACUTE DISTRESS.
[2019-06-13 15:32] VITALS: BP 109/57
--- NOTE | 2019-06-13 16:00 | NUR ---
PT BEFORE, NO DISTRESS, NO COMPLAINTS. PT AT REST IN THE BED.
--- NOTE | 2019-06-13 19:15 | NUR ---
REPORT FROM FEDERICO SPEARS. PT RESTING IN BED. NO APPARENT DISTRESS NOTED. IV FLUIDS INFUSING WITHOUT DIFFICULTY. DISCUSSED POC. PT VERBALIZED UNDERSTANDING. CALL LIGHT WITHIN REACH. WILL CONTINUE TO MONITOR.
[2019-06-13 19:30] VITALS: BP 127/64
--- NOTE | 2019-06-13 19:40 | NUR ---
PT MEDICATED FOR LOWER BACK PAIN 9-10. PT DENIES ANY OTHER WANTS OR NEEDS. CALL LIGHT WITHIN REACH. WILL CONTINUE TO MONITOR.
--- NOTE | 2019-06-13 23:16 | NUR ---
PT RESTING IN BED WITH EYES CLOSED. NO APPARENT DISTRESS NOTED. CALL LIGHT WITHIN REACH. WILL CONTINUE TO MONITOR.
--- NOTE | 2019-06-14 02:23 | NUR ---
PT MEDICATED FOR LOWER BACK PAIN UPON REQUEST. NO APPARENT DISTRESS NOTED. IV FLUIDS INFUSING WITHOUT DIFFICULTY. CALL LIGHT WITHIN REACH. WILL CONTINUE TO MONITOR.
[2019-06-14 03:45] VITALS: BP 137/68
[2019-06-14 08:00] VITALS: BP 120/75
[2019-06-14 16:27] VITALS: BP 124/71
[2019-06-14 19:10] VITALS: BP 134/58
[2019-06-15 05:05] LABS: HEMATOCRIT 32.9 % (39.0-50.0); HEMOGLOBIN 10.6 g/dl (14.0-18.0)
[2019-06-15 05:10] VITALS: BP 104/60
[2019-06-15 05:25] LABS: ANION GAP 10 (6-22 (CALC)); BUN 13 mg/dL (9-20); BUN/CREATININE RATIO 17 (12-20 (CALC)); CARBON DIOXIDE 25 mmol/l (22-30); CHLORIDE 108 mmol/l (95-108); CPK 1473 u/l (52-200); CREATININE 0.8 mg/dL (0.7-1.3); GFR > 60 ML/MIN (>=60 (CALC)); GFR FOR AFR.AMER. > 60 ML/MIN (>=60 (CALC)); POTASSIUM 3.6 mmol/l (3.5-5.1); SGOT/AST 77 u/l (17-59); SODIUM 139 mmol/l (137-146)
[2019-06-15 08:20] VITALS: BP 111/70
--- NOTE | 2019-06-15 08:20 | NUR ---
ASSESSMENT IS COMPLETED: IV SITE IS FREE FROM REDNESS OR EDEMA. HR IS REG,PULSES ARE STRONG X4, ABD IS SOFT WITH ACTIVE BS, BREATH SOUNDS ARE CLEAR BILATERALLY. CONTINUE TO OSBERVE AND MONITOR.
--- NOTE | 2019-06-15 11:08 | NUR ---
Pt seen this am for treatment. He was OOb in chair, c/o 6/10 LBP R>L side. Pt denied difficulty with walking. Gait in [place] wasy x 150' and 4 steps without railing done without LOB noted. Pt returned to room and in L side lying manual to LB done. STM/Trigger pt release and manual stretch to quad lumborum done. Pt noted to have muscle band/spasm in R lumbar and lower thoracic para spinals/quad lumborum. After manual tissue tension was decreased and pt pain level was 4/10, stating it felt much better. Pt left in chair with call low in reach.
--- NOTE | 2019-06-15 12:00 | NUR ---
PT IS SITTING ON THE COUCH, NO DISTRESS NTOED. IV SITE IS FREE FROM REDNESS OR EDMEA.
--- NOTE | 2019-06-15 13:00 | NUR ---
PT IV SITE DISCONITNUED CATHETER INTACT. NO REDNESS OR EDEMA DISCHARGE INSTRUCTIONS GIVEN AND VERBALZIED UNDERSTANDING, Discharge instructions given. Patient verbalizes understanding of same. Discharged in stable condition via Ambulatory to Home with family. All belongings sent with pt.
== END 2019-06-15 13:00 | disposition home or self-care (01) | DRG 558 ==
LOC: ED 09:54 → ED-I 13:02 → ED 13:36 → ED-I 13:37 → MS2 15:53
PROVIDERS: Internal Medicine; Nurse Practitioner Family; ADMIT Internal Medicine; ATTEND Internal Medicine
DX: M62.82 Rhabdomyolysis (principal); N17.9 Acute kidney failure, unspecified; E86.0 Dehydration; F20.9 Schizophrenia, unspecified; I10 Essential (primary) hypertension; G62.9 Polyneuropathy, unspecified; R74.0 Nonspecific elevation of levels of transaminase and lactic acid dehydrogenase [LDH]; R29.6 Repeated falls; E87.6 Hypokalemia; K76.0 Fatty (change of) liver, not elsewhere classified; Z23 Encounter for immunization; Z87.820 Personal history of traumatic brain injury; Z87.891 Personal history of nicotine dependence
CPT/HCPCS: J1650; Q9967

== ENCOUNTER 2019-06-22 17:51 | Emergency (ER) | payer OTHER ==
[~2019-06-22] VITALS: Ht 180.3 cm; Wt 122.7 kg
[~2019-06-22 17:51] MED LIST changes: +CLONAZEPAM1 MG PO
[2019-06-22 18:16] LABS: URINE BILIRUBIN - DIPSTICK NEGATIVE (NEGATIVE); URINE BLOOD DIPSTICK NEGATIVE (NEGATIVE); URINE COLOR YELLOW; URINE GLUCOSE - DIPSTICK NEGATIVE (NEGATIVE); URINE KETONE NEGATIVE (NEGATIVE); URINE LEUK ESTERASE NEGATIVE (NEGATIVE); URINE NITRITE - DIPSTICK NEGATIVE (Negative); URINE PH 6.5 (4.5-8.0); URINE PROTEIN - DIPSTICK NEGATIVE (NEG-TRACE); URINE SPECIFIC GRAVITY 1.025
[2019-06-22 18:18] LABS: BARBITURATES NEGATIVE (NEGATIVE); COCAINE NEGATIVE (NEGATIVE); METHADONE NEGATIVE (NEGATIVE); OXCYCODONE NEGATIVE (NEGATIVE); TETRAHYDROCANNABIONOL NEGATIVE (NEGATIVE); TRICYLIC ANTIDEPRESSANTS NEGATIVE (NEGATIVE)
[2019-06-22 18:36] LABS: IMMATURE GRANULOCYTES 0.4 % (0.0-5.0); MEAN CELL VOLUME 89.9 fL CALC (80.0-100.0); MEAN CORPUSCULAR HGB 28.1 pG CALC (26.0-32.0); MEAN CORPUSCULAR HGB CONC 31.3 g/L CALC (32.0-36.0); NEUT# 6.99 thou/uL (1.82-7.42); RED BLOOD COUNT 4.84 mill/uL (4.70-6.10); RED CELL DISTRI WIDTH 13.2 % (11.5-15.5)
[2019-06-22 18:38] LABS: HEMATOCRIT 43.5 % (39.0-50.0); HEMOGLOBIN 13.6 g/dl (14.0-18.0)
[2019-06-22 18:50] LABS: ALKALINE PHOSPHATASE 71 u/l (38-126); BUN 14 mg/dL (9-20); BUN/CREATININE RATIO 16 (12-20 (CALC)); CHLORIDE 105 mmol/l (95-108); CPK 123 u/l (52-200); CREATININE 0.9 mg/dL (0.7-1.3); GFR > 60 ML/MIN (>=60 (CALC)); GFR FOR AFR.AMER. > 60 ML/MIN (>=60 (CALC)); SGOT/AST 39 u/l (17-59); SODIUM 136 mmol/l (137-146)
[2019-06-22 18:53] LABS: ALBUMIN 4.7 g/dL (3.2-5.0); ANION GAP 20 (6-22 (CALC)); BILIRUBIN, TOTAL 0.9 mg/dL (0.0-1.4); CARBON DIOXIDE 16 mmol/l (22-30); TOTAL PROTEIN 8.4 g/dL (6.3-8.2)
[2019-06-22] MEDS ORDERED: FLEXERIL PO (19:02)
[2019-06-22] MEDS ORDERED: TRAMADOL HYDROC50 MG PO (19:02)
[2019-06-22 20:00] VITALS: BP 134/87
== END 2019-06-22 20:00 | disposition home or self-care (01) ==
LOC: ED 17:51
DX: I10 Essential (primary) hypertension (principal); M54.5 Low back pain